=== PATIENT | male | born 1950 | race Caucasian/White ===

== ENCOUNTER 2020-12-11 18:47 | Emergency (ER) | payer OTHER, BC ==
--- OUTSIDE RECORDS SUMMARY | 2020-12-11 18:50 | XMS REPORT | Continuity of Care Document ---
:1950 Author Organization [facility] t Address [address] [place] [address] Care Team Providers Name Role Phone Favian LEONARD, R.A. Primary Care Physician Unavailable Doctor Unassigned, Name Attending Clinician Unavailable Marylou Giraldo MD Attending Clinician Danae LEONARD Attending Clinician Pob, Lab Main Attending Clinician Unavailable Problems This patient has no known problems. Allergies, Adverse Reactions, Alerts This patient has no known allergies or adverse reactions. Family History Family Member Diagnosis Comments Start Date Stop Date Source Natural brother Coronary artery MD Marylou govea disease Natural brother Prostate cancer MD Marylou govea Natural father Heart attack MD Sosa son Maternal grandmother Liver cancer MD Alvarado Natural mother Stomach cancer Natural mother Stroke MD Tiago simmons Paternal grandmother Diabetes MD Marylou govea Social History Social Habit Start Date Stop Date Quantity Comments Source History of tobacco Current smoker MD Alvarado use Sex Assigned At MD Cornelius on Cigarettes smoked 2016-12-11 2016-12-11 MD Elijah shields current (pack per 00:00:00 00:00:00 day) - Reported Cigarette pack-years 2016-12-11 2016-12-11 MD Marylou govea 00:00:00 00:00:00 Tobacco use and 2016-12-11 2016-12-11 Never used MD Cornelius on exposure 00:00:00 00:00:00 Alcohol intake 2016-12-11 2016-12-11 Current drinker MD Venus mcbride 00:00:00 00:00:00 of alcohol (finding) Alcohol Comment 2016-12-05 2016-12-05 not drinking MD Elijah shields 00:00:00 00:00:00 anymore Smoking Status Start Date Stop Date Source Former smoker 2016-12-11 00:00:00 2016-12-11 00:00:00 Ian faustino Medications Ordered Filled Start Stop Current Ordering Indication Dosage Frequency Signature Comments Components Source Medication Medication Date Date Medication? Clinician (SIG) Name Name omega-3 Yes 1000mg 1,000 mg MD fatty 2-14 twice Anderso acids-vitam 21:27: daily. n in E 1,000 04 mg cap MAGNESIUM Yes 400mg Take 400 MD ORAL 2-14 mg by Anderso 21:27: mouth n 04 daily. trolamine Yes Apply MD salicylate 2-14 topically Elijah rso (ASPERCREME 21:27: to n ) 10 % 04 affected cream area(s) daily. UNABLE TO Yes Med Name: FIND 2-14 torpicin Anderso 21:27: topical n 04 cream for joint pain-appli es daily levothyroxi Yes hypothyroid 50ug Take 50 MD ne 2-14 ism mcg by Anderso (SYNTHROID, 21:27: mouth n LEVOTHROID) 04 daily. 50 mcg tablet lisinopril Yes hypertensio 20mg Take 20 mg MD (PRINIVIL,Z 2-14 n by mouth Elijah rso ESTRIL) 20 21:27: twice n mg tablet 04 daily. diazePAM Yes Fear of 10mg Take 1 MD (VALIUM) 10 2-14 other tablet (10 A nderso mg tablet 00:00: medical mg) by n 00 care mouth once as needed for anxiety for up to 1 dose. metFORMIN 2016-10 Yes MD (GLUCOPHAGE 2-12 Anderso ) 500 mg 00:00: n tablet 00 bisoprolol- Yes MD hydrochloro 1-20 Anderso thiazide 00:00: n (ZIAC) 2.5 00 mg-6.25 mg per tablet MILK Yes 1000mg 1,000 mg MD THISTLE, 8-21 daily. Anderso BULK, MISC 00:00: n 00 pravastatin Yes 40mg 40 mg MD (PRAVACHOL) 1-02 twice Anderso 40 mg 00:00: daily. n tablet 00 Procedures This patient has no known procedures. Plan of Care Planned Activity Planned Date Details Comments Source Future Appointment 2021-12-13 00:00:00 Osiel Blackwell MD, [address], [place] [address] Encounters Start End Encounter Admission Attending Care Care Encounter Source Date/Time Date/Time Type Type Clinicians Facility Department ID 2020-05-03 2020-05-03 Orders Doctor JULIO 1.2.840.114 [id number] 00:00:00 00:00:00 Only Unassigned, AYAKA [id number] [facility] [id number] 2020-01-08 2020-01-08 Patient Giraldo, [facility] 1.2.840.114 [id number] 00:00:00 00:00:00 Secure Msg Annika [facility] [id number] [place] [id number] Professio [phone] [place] [address] Office [address] One 2020-01-04 2020-01-04 Patient Giraldo, [facility] [id number] 00:00:00 00:00:00 Secure Msg Annika [facility] [id number] [place] [id number] Professio [phone] [place] [address] Office [facility] One 2019-12-29 2019-12-29 [facility] 1.2.840.114 [id number] 00:00:00 00:00:00 Annika Marylou [place] [id number] [place] [id number] Professio [phone] [address] 2019-12-03 2019-12-03 Refill Giraldo, [facility] 1.2.840.114 [id number] 00:00:00 00:00:00 Annika A [place] [id number] [place] [id number] Professio [phone] [address] 2019-11-26 2019-11-26 [facility] GENEVA Fink 1.2.840.114 [id number] 11:30:00 23:59:00 Encounter Liborio Gibbons [id number] [facility] [id number] 2019-11-26 2019-11-26 Pediatric Nephrologist Mohsen Orozco [facility] 1.2.840.114 [id number] 12:45:08 13:00:08 Visit Lab Main [place] [id number] [place] [id number] Professio [phone] count includes the [facility] 353 [facility] 2019-11-02 2019-11-02 Orders Doctor JULIO 1.2.840.114 [id number] 00:00:00 00:00:00 Only Unassigned, AYAKA [id number] [facility] [id number] 2019-10-28 2019-10-28 Patient Giraldo [facility] 1.2.840.114 [id number] 00:00:00 00:00:00 Secure Msg Annika A [place] [id number] [place] [id number] Professio [phone] count includes the [facility] 044 [facility] 2019-10-28 2019-10-28 [facility] 1.2.840.114 [id number] 00:00:00 00:00:00 Annika A [place] [id number] [place] [id number] Professio [phone] count includes the [facility] 231 [facility] 2019-10-28 2019-10-28 [facility] 1.2.840.114 [id number] 00:00:00 00:00:00 Annika A [place] [id number] [place] [id number] Professio [phone] [address] 2019-04-30 2019-04-30 [facility] 1.2.840.114 [id number] 00:00:00 00:00:00 Annika A [place] [id number] [place] [id number] Professio [phone] [address] Results This patient has no known results.
[2020-12-11] MEDS ORDERED: TETANUS & DIPHTHERIA TOX,ADULT 0.5 ML VIAL ONE (20:35)
--- NOTE | 2020-12-11 20:53 | ER ---
Nurse's Notes [facility] Name: Dick Lynne Age: 70 yrs Sex: Male : 1950 Arrival Date: 12/11/2020 Time: 19:30 Bed 28 Private MD: Diagnosis: Puncture wound without foreign body of foot Presentation: 12/11 19:30 Chief complaint: Patient states: Stepped on a screw at 1730. Puncture wound on L foot, ca1 pulled out the screw, bleeding controlled. Coronavirus screen: Client denies travel out of the [place] in the last 14 days. At this time, the client does not indicate any symptoms associated with coronavirus-19. Ebola Screen: Patient negative for fever greater than or equal to 101.5 degrees Fahrenheit, and additional compatible Ebola Virus Disease symptoms Patient denies exposure to infectious person. Patient denies travel to an Ebola-affected area in the 21 days before illness onset. No symptoms or risks identified at this time. Initial Sepsis Screen: Does the patient meet any 2 criteria? No. Patient's initial sepsis screen is negative. Does the patient have a suspected source of infection? No. Patient's initial sepsis screen is negative. Risk Assessment: Do you want to hurt yourself or someone else? Patient reports no desire to harm self or others. Onset of symptoms was December 11, 2020. 19:30 Method Of Arrival: Ambulatory ca1 19:30 Acuity: SHAD 4 ca1 Historical: - Allergies: 19:35 No Known Allergies; ca1 - PMHx: 19:35 Hypertension; Diabetes - NIDDM; CAD; ca1 - PSHx: 19:35 None; ca1 - Immunization history:: Last tetanus immunization: < 5 years ago Pneumococcal vaccine is up to date, Flu vaccine is not up to date. - Social history:: Smoking status: Patient/guardian denies using tobacco. Screenin:36 Abuse screen: Denies threats or abuse. Denies injuries from another. Nutritional rr5 screening: No deficits noted. Tuberculosis screening: No symptoms or risk factors identified. Fall Risk None identified. Total Arias Fall Scale indicates No Risk (0-24 pts). Assessment: 20:10 General: Appears in no apparent distress. comfortable, Behavior is calm, cooperative, rr5 appropriate for age. Pain: Complains of pain in left foot. Neuro: Level of Consciousness is awake, alert, obeys commands, Oriented to person, place, time. Cardiovascular: Capillary refill < 3 seconds Patient's skin is warm and dry. Respiratory: Airway is patent Respiratory effort is even, unlabored, Respiratory pattern is regular, symmetrical. Derm: Wound noted left foot Wound is punctured. Musculoskeletal: Circulation, motion, and sensation intact. Capillary refill < 3 seconds. 21:16 Reassessment: Patient appears in no apparent distress at this time. Patient is alert, rr5 oriented x 3, equal unlabored respirations, skin warm/dry/pink. discharge instruction given and explained without complaints made. Vital Signs: 19:30 BP 160 / 83; Pulse 70; Resp 16 S; Temp 99.2(TE); Pulse Ox 100% on R/A; Weight 72.57 kg ca1 (R); Height 5 ft. 9 in. (175.26 cm) (R); Pain 2/10; 21:16 BP 145 / 70; Pulse 75; Resp 19; Pulse Ox 99% ; rr5 19:30 Body Mass Index 23.63 (72.57 kg, 175.26 cm) ca1 ED Course: 19:30 Patient arrived in ED. ca1 19:33 Triage completed. ca1 19:35 Arm band placed on right wrist. ca1 19:46 Elizabeth Tabares FNP-C [facility]. kb 19:46 Timmy Chester MD is Attending Physician. kb 20:12 Austin Gonzalez RN is Primary Nurse. rr5 20:35 X-ray(s) taken. rr5 20:36 Patient has correct armband on for positive identification. Bed in low position. Call rr5 light in reach. Pulse ox on. NIBP on. 21:15 Patient did not have IV access during this emergency room visit. Wound care: to rr5 puncture located on left foot was cleaned with Betadine, dressed with Neosporin, band aid, Patient tolerated well. 21:16 No provider procedures requiring assistance completed. rr5 Administered Medications: 20:32 Drug: Tetanus-Diphtheria Toxoid Adult 0.5 ml {Manager It Training: [employer]. Exp: rr5 03/12/2022. Lot #: [id number]. } Route: IM; Site: left deltoid; 21:17 Follow up: Response: No adverse reaction rr5 21:00 Drug: Ancef 1 grams Route: IM; Site: left gluteus; rr5 21:17 Follow up: Response: No adverse reaction rr5 Outcome: 20:52 Discharge ordered by MD. zavala 21:15 Discharged to home ambulatory. rr5 21:15 Condition: stable 21:15 Discharge instructions given to patient, Instructed on discharge instructions, follow up and referral plans. medication usage, Demonstrated understanding of instructions, follow-up care, medications, Prescriptions given X 1. 21:24 Patient left the ED. rr5 Signatures: Elizabeth Tabares, WILMAR-Altaf URBAN-Austin Palomino, RN RN rr5 Arabella Lua RN RN ca1
--- NOTE | 2020-12-11 20:53 | EDPHYS ---
Physician Documentation [facility] Name: Dick Lynne Age: 70 yrs Sex: Male : 1950 Arrival Date: 12/11/2020 Time: 19:30 Bed 28 Private MD: ED Physician Timmy Chester HPI: 12/11 21:38 This 70 yrs old Male presents to ER via Ambulatory with complaints of kb Puncture Wound. 21:38 The patient presents with pain, a puncture wound. The complaints affect the left foot. kb Context: The problem was sustained outdoors, resulted from the patient stepping on a nail, while wearing shoes, the patient can fully bear weight, the patient is able to ambulate. Onset: The symptoms/episode began/occurred just prior to arrival. Modifying factors: The symptoms are alleviated by nothing, the symptoms are aggravated by nothing. Associated signs and symptoms: The patient has no apparent associated signs or symptoms. Severity of symptoms: At their worst the symptoms were mild, in the emergency department the symptoms are unchanged. The patient has not experienced similar symptoms in the past. The patient has not recently seen a physician. Pt states he stepped on a screw. States he is concerned because he is diabetic and doesn't want to get a deep tissue infection. . Historical: - Allergies: 19:35 No Known Allergies; ca1 - PMHx: 19:35 Hypertension; Diabetes - NIDDM; CAD; ca1 - PSHx: 19:35 None; ca1 - Immunization history:: Last tetanus immunization: < 5 years ago Pneumococcal vaccine is up to date, Flu vaccine is not up to date. - Social history:: Smoking status: Patient/guardian denies using tobacco. ROS: 21:36 Constitutional: Negative for fever, chills, and weight loss, MS/Extremity: Negative for kb injury and deformity, Neuro: Negative for headache, weakness, numbness, tingling, and seizure. 21:36 Skin: Positive for puncture, of the ball of left foot. Exam: 21:37 Constitutional: This is a well developed, well nourished patient who is awake, alert, kb and in no acute distress. Head/Face: Normocephalic, atraumatic. MS/ Extremity: Pulses equal, no cyanosis. Neurovascular intact. Full, normal range of motion. Neuro: Awake and alert, GCS 15, oriented to person, place, time, and situation. Cranial nerves II-XII grossly intact. Moves all extremities. Sensory grossly intact. Cerebellar exam normal. Normal gait. 21:37 Respiratory: the patient does not display signs of respiratory distress, Respirations: normal. 21:37 Skin: injury, puncture(s), that are deep, of the ball of left foot. Vital Signs: 19:30 BP 160 / 83; Pulse 70; Resp 16 S; Temp 99.2(TE); Pulse Ox 100% on R/A; Weight 72.57 kg ca1 (R); Height 5 ft. 9 in. (175.26 cm) (R); Pain 2/10; 21:16 BP 145 / 70; Pulse 75; Resp 19; Pulse Ox 99% ; rr5 19:30 Body Mass Index 23.63 (72.57 kg, 175.26 cm) ca1 MDM: 20:13 Patient medically screened. kb 21:15 Data reviewed: vital signs, nurses notes. Data interpreted: Pulse oximetry: on room air kb is 100 %. Interpretation: normal. Counseling: I had a detailed discussion with the patient and/or guardian regarding: the historical points, exam findings, and any diagnostic results supporting the discharge/admit diagnosis, radiology results, the need for outpatient follow up, a family practitioner, to return to the emergency department if symptoms worsen or persist or if there are any questions or concerns that arise at home. 12/11 19:46 Order name: Foot Left 3 View XRAY kb 12/11 20:57 Order name: RAD; Complete Time: 21:10 EDMS Administered Medications: 20:32 Drug: Tetanus-Diphtheria Toxoid Adult 0.5 ml {Director Toxicology: [employer]. Exp: rr5 03/12/2022. Lot #: [id number]. } Route: IM; Site: left deltoid; 21:17 Follow up: Response: No adverse reaction rr5 21:00 Drug: Ancef 1 grams Route: IM; Site: left gluteus; rr5 21:17 Follow up: Response: No adverse reaction rr5 Disposition: 12/12 05:56 Co-signature as Attending Physician, Timmy Chester MD. [email or web address] Disposition: 12/11/20 20:52 Discharged to Home. Impression: Puncture wound without foreign body of foot. - Condition is Stable. - Discharge Instructions: Puncture Wound, [id number]. - Prescriptions for Keflex 500 mg Oral Capsule - take 1 capsule by ORAL route every 8 hours for 10 days; 30 capsule. - Medication Reconciliation Form, Thank You Letter, Antibiotic Education, Prescription Opioid Use form. - Follow up: Emergency Department; When: As needed; Reason: Worsening of condition. Follow up: Private Physician; When: 2 - 3 days; Reason: Recheck today's complaints, Continuance of care, Re-evaluation by your physician. Signatures: Dispatcher [employer] EDMS Elizabeth Tabares, SERVICES EXECUTIVE-C SERVICES EXECUTIVE-CkAustin Modi RN RN rr5 Acob, Arabella RN RN ca1 Timmy Chester MD MD [email or web address] Corrections: (The following items were deleted from the chart) 12/11 21:24 20:52 12/11/2020 20:52 Discharged to Home. Impression: Puncture wound without foreign rr5 body of foot. Condition is Stable. Forms are Medication Reconciliation Form, Thank You Letter, Antibiotic Education, Prescription Opioid Use. Follow up: Emergency Department; When: As needed; Reason: Worsening of condition. Follow up: Private Physician; When: 2 - 3 days; Reason: Recheck today's complaints, Continuance of care, Re-evaluation by your physician. kb
--- NOTE | 2020-12-11 20:56 | RAD REPORT ---
EXAM DESCRIPTION: RAD - Foot Left 3 View - 12/11/2020 8:38 pm CLINICAL HISTORY: PAIN COMPARISON: No comparisons FINDINGS: No fracture, dislocation or radiopaque foreign body. Mild vascular atherosclerotic change.
[2020-12-11] MEDS ORDERED: WATER FOR INJ,STERILE 10 ML ONE (21:13)
[2020-12-11] MEDS ORDERED: CEFAZOLIN SODIUM 1 GM/VIAL ONE (21:13)
[2020-12-11 22:48] VITALS: TEMP 99.2
[2020-12-11 22:50] VITALS: BP 145/70; O2SAT 99
== END 2020-12-11 21:24 | disposition home or self-care (01) ==
LOC: ER 18:47
DX: S91.332A Puncture wound without foreign body, left foot, initial encounter (principal); W45.0XXA Nail entering through skin, initial encounter; Y93.01 Activity, walking, marching and hiking; Y92.89 Other specified places as the place of occurrence of the external cause; Z23 Encounter for immunization; I10 Essential (primary) hypertension
CPT/HCPCS: 73630; 90471; 90714; 96372; 99284; J0690

== ENCOUNTER 2024-02-04 14:19 | Emergency (ER) | payer OTHER, BC ==
--- OUTSIDE RECORDS SUMMARY | 2024-02-04 14:22 | XMS REPORT | Clinical Summary ---
Author Name Unknown Organization [facility] Address [address] [place] [address] Care Team Providers Care Acidity Tester Name Role Phone Ld Ballesteros R.A., MD Primary Care Provider Un available Oscar Lopez MD Unavailable Allergies No known active allergies Medications Medication Sig Dispensed Refills Start Date End Date Status bisoprolol-hydrochlo rothiazide (ZIAC) 2.5 mg-6.25 mg per tablet 0 10/26/2015 Active omega-3 fatty acids-vitamin E 1,000 mg cap 1,000 mg twice daily. 0 Active MILK THISTLE, BULK, MISC 1,000 mg daily. 0 05/27/2014 Active pravastatin (PRAVACHOL) 40 mg tablet 40 mg twice daily. 0 10/08/2011 Active MAGNESIUM ORAL Take 400 mg by mouth daily. 0 Active trolamine salicylate (ASPERCREME) 10 % cream Apply topically to affected area(s) daily. 0 Active UNABLE TO FIND Med Name: torpicin topical cream for joint pain-applies daily 0 Active levothyroxine (SYNTHROID, LEVOTHROID) 50 mcg tabletIndications:hy pothyroidism Take 50 mcg by mouth daily. 0 Active lisinopril (PRINIVIL,ZESTRIL) 20 mg tabletIndications:hy pertension Take 20 mg by mouth twice daily. 0 Active metFORMIN (GLUCOPHAGE) 500 mg tablet 0 09/17/2017 Active diazePAM (VALIUM) 10 mg tabletIndications:Fe ar of other medical care Take 1 tablet (10 mg) by mouth once as needed for anxiety for up to 1 dose. 1 tablet 0 11/20/2017 Active polyethylene glycol-electrolytes (NULYTELY) 420 g solutionIndications: Colonoscopy planned Use as directed by ordering provider. 4000 mL 0 12/06/2021 Active Active Problems Problem Noted Date Diagnosed Date Personal history of colonic polyp 12/24/2016 Overview: Added automatically from request for surgery [id number] Surgical History Surgery Date Site/Laterality Comments TONSILLECTOMY 10/07/1961 - 10/06/1962 BALLOON ANGIOPLASTY, ARTERY 10/07/1997 - 10/06/1998 TONSILLECTOMY WI COLONOSCOPY FLX DX W/COLLJ SPEC WHEN PFRMD 12/05/2016 N/A Procedure: DIAGNOSTIC FLEXIBLE COLONOSCOPY PROXIMAL TO SPLENIC FLEXURE; Surgeon: Osiel Blackwell MD; Location: MAIN ENDOSCOPY; Service: GASTROENTEROLOGY Medical History Medical History Date Comments 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, 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 H/O: hip fracture 01/04/1978 right hip fx; no surgery Closed fracture of base of s kull with brief loss of consciousness of less than one hour 01/04/1978 no surgery Hyperlipidemia 1992 Fatty liver 2013 Pancreatitis 1983 Arthritis 2014 hands and jaw H/O: gout 2001 Rosacea 2014 Fracture of rib 01/04/1978 Disorder of coronary artery 1995 Hypertension 1995 Diabetes mellitus Disorder of thyroid gland hypoth roidism Family History Medical History Relation Name Comments Coronary artery disease Brother 1 Kostas Prostate cancer Brother 1 Kostas Prostate cancer Brother 2 Davy Heart attack Father Liver cancer Maternal Grandmother Stomach cancer Mother Stroke Mother Diabetes Paternal Grandmother Relation Name Status Comments Brother 1 Kostas Alive Brother 2 Davy Alive Father Maternal Grandfather Maternal Grandmother Mother Paternal Grandfather Paternal Grandmother Social History Tobacco Use Types Packs/Day Years Used Date Smoking Tobacco: Former Cigarettes 0.5 12 Q uit: 1984 Smokeless Tobacco: Never Alcohol Use Standard Drinks/Week Comments Yes 14 (1 standard drink = 0.6 oz pu re alcohol) not drinking anymore Sex and Gender Information Value Date Recorded Sex Assigned at Not on file Gender Identity Not on file Sexual Orientation Not on file History Length Weight Head Circum Gestation Age D/C Weight APGARs Del jacey Method Feeding PSA: 04/05/2016 (3.4)Col: n/ a Obstetrics History Plan of Treatment Health Maintenance Due Date Last Done Comments COVID-19 Vaccine (#1) 1950 Influenza Vaccine 06/07/2023 Care Teams Acidity Tester Relationship Specialty Start Date End Date Ld Ballesteros R.A., MD PCP - General Gastroenterology, Hepatology and Nutrition 02/06/16 Oscar Lopez MD [address] [place] [address] PCP - External Referring Urology 05/02/16
[2024-02-04] MEDS ORDERED: FOLIC ACID 5 MG/ML VIAL ONE (14:38)
[2024-02-04] MEDS ORDERED: NA CHLORIDE 0.9% 1,000 ML ONE (14:38)
[2024-02-04 14:51] LABS: Absolute Lymphocytes (CBC) 1.1 K/uL (0.7-4.9); Absolute Monocytes 0.7 K/uL (0.1-1.3); Absolute Neutrophil 5.4 K/uL (1.8-8.0); Basophils % 0.4 % (0-1.3); Eosinophils % 0.4 % (0-4.4); Hematocrit 41.9 % (39.6-49.0); Hemoglobin 13.8 g/dL (13.6-17.9); Lymphocytes % 15.1 % (15.3-44.8); MCH 31.5 pg (27.0-35.0); MCHC 32.9 g/dL (32.0-36.0); MCV 95.9 fL (80-100); MPV 8.3 fL (7.6-11.3); Monocytes % 9.6 % (3.3-12.3); Neutrophils % 74.5 % (41.7-73.7); Platelets 211 thou/uL (152-406); RBC Red Blood Cell Count 4.37 M/uL (4.33-5.43); Red Cell Distribution Width 13.1 % (12.1-15.2)
[2024-02-04 14:54] LABS: PT Prothrombin Time 10.4 SECONDS (9.5-12.5); Protime INR 0.94
--- NOTE | 2024-02-04 15:04 | RAD REPORT ---
EXAM DESCRIPTION: RAD - Chest Single View - 02/04/2024 2:50 pm CLINICAL HISTORY: COUGH Chest pain. COMPARISON: Chest Pa And Lat (2 Views) dated 11/21/2023; CHEST PA AND LAT 2 VIEW dated 11/10/2010 FINDINGS: Portable technique limits examination quality. The lungs are grossly clear. The heart is normal in size. No displaced fractures. IMPRESSION: No acute intrathoracic process suspected.
--- NOTE | 2024-02-04 15:05 | RAD REPORT ---
EXAM DESCRIPTION: CT - Head Brain Wo Cont - 02/04/2024 2:52 pm CLINICAL HISTORY: DIZZINESS Headache, drowsiness, dizziness COMPARISON: No comparisons TECHNIQUE: All CT scans are performed using dose optimization technique as appropriate and may inclu de automated exposure control or mA/KV adjustment according to patient size. FINDINGS: No intracranial hemorrhage, hydrocephalus or extra-axial fluid collection.No areas of brai n edema or evidence of midline shift. The paranasal sinuses and mastoids are clear. The calvarium is intact. IMPRESSION: No acute intracranial abnormality.
[2024-02-04 15:10] LABS: Albumin 4.2 g/dL (3.4-5.0); Albumin/Globulin Ratio 1.4 (1.1-1.8); Anion Gap 9.7 mEq/L (5.0-15.0); Bilirubin Direct 0.3 mg/dL (0-0.2); Bilirubin Indirect, Calculated 0.9 mg/dL (0.2-0.8); Bilirubin Total 1.2 mg/dL (0.2-1.0); Globulin 3.1 g/dL (2.3-3.5); Magnesium 2.3 mg/dL (1.6-2.4); Potassium 3.7 mEq/L (3.5-5.1); Protein, Total 7.3 g/dL (6.4-8.2); Troponin High Sensitivity 5.6 pg/mL (<58.9)
--- NOTE | 2024-02-04 15:10 | RAD REPORT ---
EXAM DESCRIPTION: CT - Head angio - 02/04/2024 2:51 pm CLINICAL HISTORY: HEADACHE Headache, drowsiness, CVA symptomology COMPARISON: Head Brain Wo Cont dated 02/04/2024 TECHNIQUE: CT angiography of the head was performed with MIPs. All CT scans are performed using dose optimization technique as appropriate and may include automated exposure control or mA/KV adjustment according to patient size. FINDINGS: No evidence of large vessel occlusion. No evidence of aneurysm is detected. No flow-limiti ng stenosis or vascular malformation identified. Antegrade flow is seen in the vertebral arteries. The left vertebral artery is dominant. The visualized dural venous sinuses are patent. IMPRESSION: No significant flow abnormality is detected.
--- NOTE | 2024-02-04 15:11 | RAD REPORT ---
EXAM DESCRIPTION: CT - Neck Angio - 02/04/2024 2:52 pm CLINICAL HISTORY: dzzy Headache, drowsiness, CVA symptomology COMPARISON: No comparisons TECHNIQUE: CT angiography of the neck vessels was performed with MIPs. All CT scans are performed using dose optimization technique as appropriate and may include automated exposure control or mA/KV adjustment according to patient size. FINDINGS: A left aortic arch is identified with normal three vessel configuration of the great vesse ls. No significant flow abnormality is seen of the common carotid bilaterally. There is moderate hard plaquing is seen involving the proximal left internal carotid artery. This res ults in stenosis estimated at 95% based on NASCET criteria. Small amount of hard plaque is seen right carotid bulb. There is no significant right carotid stenosis seen. Left vertebral artery is dominant with forward flow noted. IMPRESSION: 95% stenosis of the left carotid bulb is noted based on NASCET criteria, caused by promi nent hard plaquing. NASCET criteria used. Mild 0-49% stenosis Moderate 50-69% stenosis Severe 70-99% stenosis
[2024-02-04] MEDS ORDERED: LORazepam 2 MG/ML VIAL ONE (15:22)
[2024-02-04] MEDS ORDERED: CLOPIDOGREL 75 MG TABLET ONE (15:22)
[2024-02-04] MEDS ORDERED: TENECTEPLASE 50 MG/10 ML VIAL IV ONE (15:28)
--- NOTE | 2024-02-04 15:48 | EDPHYS ---
Physician Documentation [facility] Name: Dick Lynne Age: 73 yrs Sex: Male : 1950 Arrival Date: 02/04/2024 Time: 14:19 Bed 6 Private MD: ED Physician Agustin Alvarado HPI: 02/03 15:41 This 73 yrs old Male presents to ER via Ambulatory with complaints of [facility] Dizziness, Foggy. 15:41 The patient presents with dizziness. Onset: The symptoms/episode began/occurred at [facility] 12:30. Context: occurred at home, occurred while the patient was working. Modifying factors: The symptoms are alleviated by nothing, the symptoms are aggravated by nothing, movement of head. Associated signs and symptoms: Pertinent positives: thought are foggy. Severity of symptoms: At their worst the symptoms were mild moderate in the emergency department the symptoms are unchanged. Patient's baseline: Neuro: alert and fully oriented. The patient has not experienced similar symptoms in the past. Historical: - Allergies: 14:30 Iodine; as6 - PMHx: 14:30 Diabetes - NIDDM; CAD; Hypertension; as6 - PSHx: 14:30 leg (Hypertension); as6 - Immunization history:: Adult Immunizations up to date. - Infectious Disease History:: Denies. - Social history:: Smoking status: Patient denies any tobacco usage or history of. - Family history:: not pertinent. ROS: 15:41 Constitutional: Negative for fever, chills, and weight loss, Eyes: Negative for injury, alphonse pain, redness, and discharge, ENT: Negative for injury, pain, and discharge, Neck: Negative for injury, pain, and swelling, Cardiovascular: Negative for chest pain, palpitations, and edema, Respiratory: Negative for shortness of breath, cough, wheezing, and pleuritic chest pain, Abdomen/GI: Negative for abdominal pain, nausea, vomiting, diarrhea, and constipation, Back: Negative for injury and pain, : Negative for injury, bleeding, discharge, and swelling, MS/Extremity: Negative for injury and deformity, Skin: Negative for injury, rash, and discoloration, Psych: Negative for depression, anxiety, suicide ideation, homicidal ideation, and hallucinations, Allergy/Immunology: Negative for hives, rash, and allergies, Endocrine: Negative for neck swelling, polydipsia, polyuria, polyphagia, and marked weight changes, Hematologic/Lymphatic: Negative for swollen nodes, abnormal bleeding, and unusual bruising, 15:41 Neuro: Positive for dizziness, thought not crisp, clear, Exam: 15:41 Constitutional: This is a well developed, well nourished patient who is awake, alert, alphonse and in no acute distress. Head/Face: Normocephalic, atraumatic. Eyes: Pupils equal round and reactive to light, extra-ocular motions intact. Lids and lashes normal. Conjunctiva and sclera are non-icteric and not injected. Cornea within normal limits. Periorbital areas with no swelling, redness, or edema. ENT: Nares patent. No nasal discharge, no septal abnormalities noted. Tympanic membranes are normal and external auditory canals are clear. Oropharynx with no redness, swelling, or masses, exudates, or evidence of obstruction, uvula midline. Mucous membranes moist. Neck: Trachea midline, no thyromegaly or masses palpated, and no cervical lymphadenopathy. Supple, full range of motion without nuchal rigidity, or vertebral point tenderness. No Meningismus. Chest/axilla: Normal chest wall appearance and motion. Nontender with no deformity. No lesions are appreciated. Cardiovascular: Regular rate and rhythm with a normal S1 and S2. No gallops, murmurs, or rubs. Normal PMI, no JVD. No pulse deficits. Respiratory: Lungs have equal breath sounds bilaterally, clear to auscultation and percussion. No rales, rhonchi or wheezes noted. No increased work of breathing, no retractions or nasal flaring. Abdomen/GI: Soft, non-tender, with normal bowel sounds. No distension or tympany. No guarding or rebound. No evidence of tenderness throughout. Back: No spinal tenderness. No costovertebral tenderness. Full range of motion. Male : Normal genitalia with no discharge or lesions. Skin: Warm, dry with normal turgor. Normal color with no rashes, no lesions, and no evidence of cellulitis. MS/ Extremity: Pulses equal, no cyanosis. Neurovascular intact. Full, normal range of motion. Psych: Awake, alert, with orientation to person, place and time. Behavior, mood, and affect are within normal limits. 15:41 ECG was reviewed by the Attending Physician. Vital Signs: 14:29 BP 147 / 69; Pulse 46; Resp 18 S; Temp 97.2(TE); Pulse Ox 100% on R/A; Weight 74.84 kg as6 (R); Height 5 ft. 7 in. (R); Pain 0/10; 15:00 BP 170 / 97; Pulse 57; Resp 16; Pulse Ox 98% ; me1 16:00 BP 171 / 89; Pulse 51; Resp 16; Pulse Ox 100% on R/A; me1 14:29 Body Mass Index 25.84 (74.84 kg, 170.18 cm) as6 14:29 Pain Scale: Adult as6 MDM: 14:23 Patient medically screened. alphonse 15:44 Differential diagnosis: cardiac arrhythmia, CVA, generalized weakness, near-syncope, alphonse TIA, vertigo. Data reviewed: vital signs, nurses notes, lab test result(s), EKG, radiologic studies, CT scan, MRI. Consideration of Admission/Observation Escalation of care including admission/observation considered. I considered the following discharge prescriptions or medication management in the emergency department Medications were administered in the Emergency Department. See MAR. Independent interpretation of the following test(s) in the Emergency Department EKG: See my EKG interpretation above. Test considered but Not performed: Ultrasound no carotid usg. Historians other than the Patient: Spouse/Significant Other: well informed. Care significantly affected by the following chronic conditions: Diabetes, Hypertension, cad. Counseling: I had a detailed discussion with the patient and/or guardian regarding the historical points, exam findings, and any diagnostic results supporting the discharge/admit diagnosis, lab results, radiology results, the need to transfer to another facility, for higher level of care, [facility] does not immediately have the required specialist. 02/03 14:28 Order name: Basic Metabolic Panel; Complete Time: 15:13 alphonse 02/03 14:28 Order name: CBC with Diff; Complete Time: 15: alphonse 02/03 14:28 Order name: LFT's; Complete Time: 15:13 alphonse 02/03 14:28 Order name: Magnesium; Complete Time: 15:13 02/03 14:28 Order name: NT PRO-BNP; Complete Time: 15:13 02/03 14:28 Order name: PT-INR; Complete Time: 15:09 02/03 14:28 Order name: Troponin HS; Complete Time: 15:13 [facility] 02/03 14:28 Order name: Urinalysis w/ reflexes 02/03 18:03 Order name: CREATININE WHOLE BLOOD EDWY 02/03 14:28 Order name: XRAY Chest (1 view); Complete Time: 15:09 [facility] 02/03 14:28 Order name: CT Head Angio; Complete Time: 15:13 [facility] 02/03 14:28 Order name: CT Neck Angio; Complete Time: 15:13 [facility] 02/03 14:28 Order name: CT Head Brain wo Cont; Complete Time: 15:09 [facility] 02/03 15:09 Order name: Brain Wo Cont MRI [facility] 02/03 14:28 Order name: EKG; Complete Time: 14:29 [facility] 02/03 14:28 Order name: Cardiac monitoring; Complete Time: 14:43 [facility] 02/03 14:28 Order name: EKG - Nurse/Tech; Complete Time: 14:43 [facility] 02/03 14:28 Order name: IV Saline Lock; Complete Time: 14:44 [facility] 02/03 14:28 Order name: Labs collected and sent; Complete Time: 14:45 [facility] 02/03 14:28 Order name: O2 Per Protocol; Complete Time: 14:43 [facility] 02/03 14:28 Order name: O2 Sat Monitoring; Complete Time: 14:43 [facility] EC:41 Rate is 47 beats/min. Rhythm is regular. QRS [place] is Normal. HI interval is normal. QRS alphonse interval is normal. QT interval is normal. No Q waves. T waves are Normal. No ST changes noted. Clinical impression: Sinus bradycardia. Interpreted by me. Reviewed by me. Administered Medications: 14:45 Drug: NS 0.9% IV 1000 ml IV at 1 bolus Per protocol; 1000 mL bolus Route: IV; Rate: 1 me1 bolus; Site: right antecubital; 16:35 Follow up: Response: No adverse reaction; IV Status: Completed infusion; IV Intake: me1 1000ml 14:45 Drug: foLIC Acid IVPB 1 mg IVPB once Route: IVPB; Site: right antecubital; me1 14:45 Follow up: Response: No adverse reaction; IV Status: Completed infusion me1 18:20 Follow up: Response: No adverse reaction; IV Status: Completed infusion me1 15:25 Drug: Clopidogrel PO 75 mg PO once Route: PO; me1 15:51 Follow up: Response: No adverse reaction me1 15:25 Drug: Ativan IVP 1 mg IVP once Route: IVP; Site: right antecubital; me1 15:51 Follow up: Response: No adverse reaction; Anxiety decreased me1 15:39 Drug: TNK FOR STROKE - Tenecteplase IV 0.25 mg/kg IV at per protocol once; MAX me1 DOSE 25 mg, IVP over 5 seconds {Co-Signature: ld1 (Fide Ortiz RN).} Route: IV; Rate: per protocol; Site: right antecubital; 16:35 Follow up: Response: No adverse reaction; IV Status: Completed infusion me1 17:18 Drug: Famotidine IVP 20 mg IVP once; dilute with 10 mL 0.9% NaCl; give over 2 minutes me1 Route: IVP; Site: right antecubital; 18:19 Follow up: Response: No adverse reaction me1 Disposition Summary: 02/04/24 15:48 Transfer Ordered Notes: Transfer Location: [facility] alphonse Reason: Higher level of care alphonse Condition: Fair alphonse Problem: new alphonse Symptoms: have improved alphonse Accepting Physician: to [facility](02/04/24 18:18) me1 Diagnosis - Dizziness and giddiness alphonse - Type 2 diabetes mellitus with hyperglycemia alphonse - Cerebral infarction, unspecified alphonse - Occlusion and stenosis of left carotid artery - 95 % alphonse Forms: - Medication Reconciliation Form alphonse - SBAR form alphonse Signatures: Dispatcher [employer] Agustin Sheffield MD MD cha Slawson, Ashby, RN RN as6 Randa Childs RN RN me1 Fide Ortiz RN ld1 Corrections: (The following items were deleted from the chart) 14: 14:29 BASIC METABOLIC PANEL+C.LAB.BRZ ordered. EDMS EDMS 14:29 14:29 CBC+H.LAB.BRZ ordered. EDMS EDMS 14:29 14:29 HEPATIC FUNCTION+C.LAB.BRZ ordered. EDMS EDMS 14:29 14:29 MAGNESIUM+C.LAB.BRZ ordered. EDMS EDMS 14:29 14:29 PROBNP+C.LAB.BRZ ordered. EDMS EDMS 14:29 14:29 PROTIME (+INR)+COAG.LAB.BRZ ordered. EDMS EDMS 14: Troponin High Sensitivity+C.LAB.BRZ ordered. EDMS EDMS 14: Urinalysis+U.LAB.BRZ ordered. EDMS EDMS 18:18 15:48 to [facility] alphonse me1
--- NOTE | 2024-02-04 15:48 | ER ---
Nurse's Notes [facility] Name: Dick Lynne Age: 73 yrs Sex: Male : 1950 Arrival Date: 02/04/2024 Time: 14:19 Bed 6 Private MD: Diagnosis: Dizziness and giddiness;Type 2 diabetes mellitus with hyperglycemia;Cerebral infarction, unspecified;Occlusion and stenosis of left carotid artery-95 % Presentation: 02/03 14:31 Chief complaint: Patient states: dizziness and "feeling foggy". Coronavirus screen: At as6 this time, the client does not indicate any symptoms associated with coronavirus-19. Ebola Screen: No symptoms or risks identified at this time. Initial Sepsis Screen: Does the patient meet any 2 criteria? No. Patient's initial sepsis screen is negative. Does the patient have a suspected source of infection? No. Patient's initial sepsis screen is negative. Risk Assessment: Do you want to hurt yourself or someone else? Patient reports no desire to harm self or others. Onset of symptoms was February 04, 2024. 14:31 Method Of Arrival: Ambulatory as6 14:31 Acuity: SHAD 2 as6 Historical: - Allergies: 14:30 Iodine; as6 - PMHx: 14:30 Diabetes - NIDDM; CAD; Hypertension; as6 - PSHx: 14:30 leg (Hypertension); as6 - Immunization history:: Adult Immunizations up to date. - Infectious Disease History:: Denies. - Social history:: Smoking status: Patient denies any tobacco usage or history of. - Family history:: not pertinent. Screenin:15 [facility] ED Fall Risk Assessment (Adult) History of falling in the last 3 months, me1 including since admission No falls in past 3 months (0 pts) Confusion or Disorientation No (0 pts) Intoxicated or Sedated No (0 pts) Impaired Gait No (0 pts) Mobility Assist Device Used No (0 pt) Altered Elimination No (0 pt) Score/Fall Risk Level 0 - 2 = Low Risk Maintained a safe environment, Provided non-skid footwear, Hourly rounding (assess needs \\T\\ fall precautionary measures) done. Abuse screen: Denies threats or abuse. Nutritional screening: No deficits noted. Tuberculosis screening: No symptoms or risk factors identified. Assessment: 15:15 General: Appears comfortable, well groomed, well developed, well nourished, Behavior is me1 calm, cooperative, appropriate for age, Reports dizziness and feeling "detached" since about noon today. Pain: Denies pain. Neuro: Level of Consciousness is awake, alert, obeys commands, Oriented to person, place, time, situation, Appropriate for age. Neuro: Reports dizziness, since about noon today. Cardiovascular: Capillary refill < 3 seconds Patient's skin is warm and dry. Respiratory: Airway is patent Respiratory effort is even, unlabored, Respiratory pattern is regular, symmetrical. GI: No signs and/or symptoms were reported involving the gastrointestinal system. : No signs and/or symptoms were reported regarding the genitourinary system. EENT: No signs and/or symptoms were reported regarding the EENT system. Derm: Skin is intact, Skin is pink, warm \\T\\ dry. Musculoskeletal: Reports feeling a little less coordinated when ambulating today. 18:19 General: Patient left with EMS at 17:55. A\\T\\Ox4, No distress noted.. me1 Vital Signs: 14:29 BP 147 / 69; Pulse 46; Resp 18 S; Temp 97.2(TE); Pulse Ox 100% on R/A; Weight 74.84 kg as6 (R); Height 5 ft. 7 in. (R); Pain 0/10; 15:00 BP 170 / 97; Pulse 57; Resp 16; Pulse Ox 98% ; me1 16:00 BP 171 / 89; Pulse 51; Resp 16; Pulse Ox 100% on R/A; me1 14:29 Body Mass Index 25.84 (74.84 kg, 170.18 cm) as6 14:29 Pain Scale: Adult as6 ED Course: 14:23 Patient arrived in ED. mg5 14:23 Agustin Alvarado MD is Attending Physician. alphonse 14:29 Arm band placed on left wrist. as6 14:32 Triage completed. as6 14:36 Randa Childs, SHAYAN is Primary Nurse. me1 14:44 Initial lab(s) drawn, by ED staff, sent to lab. Inserted saline lock: 22 gauge in right me1 antecubital area, using aseptic technique. 14:45 Basic Metabolic Panel Sent. me1 14:45 CBC with Diff Sent. me1 14:45 LFT's Sent. me1 14:45 Magnesium Sent. me1 14:45 NT PRO-BNP Sent. me1 14:45 PT-INR Sent. me1 14:45 Troponin HS Sent. me1 14:52 XRAY Chest (1 view) In Process Unspecified. EDMS 14:53 CT Head Angio In Process Unspecified. EDMS 14:53 CT Neck Angio In Process Unspecified. EDMS 14:54 CT Head Brain wo Cont In Process Unspecified. EDMS 15:15 Patient has correct armband on for positive identification. Bed in low position. Call me1 light in reach. Side rails up X2. Provided Education on: POC. Verbalized understanding. 15:15 No provider procedures requiring assistance completed. me1 16:32 Patient transferred, IV remains in place. me1 16:38 Brain Wo Cont MRI In Process Unspecified. EDMS 17:14 initiated transfer to [facility],pt accepted in transfer to [facility] er by dr marylu gonzalez admin approval given by melani breaux. 17:18 tried to contact ems for transfer, no one answered phone, [facility] ems will transport pt.marylu Administered Medications: 14:45 Drug: NS 0.9% IV 1000 ml IV at 1 bolus Per protocol; 1000 mL bolus Route: IV; Rate: 1 me1 bolus; Site: right antecubital; 16:35 Follow up: Response: No adverse reaction; IV Status: Completed infusion; IV Intake: me1 1000ml 14:45 Drug: foLIC Acid IVPB 1 mg IVPB once Route: IVPB; Site: right antecubital; me1 14:45 Follow up: Response: No adverse reaction; IV Status: Completed infusion me1 18:20 Follow up: Response: No adverse reaction; IV Status: Completed infusion me1 15:25 Drug: Clopidogrel PO 75 mg PO once Route: PO; me1 15:51 Follow up: Response: No adverse reaction me1 15:25 Drug: Ativan IVP 1 mg IVP once Route: IVP; Site: right antecubital; me1 15:51 Follow up: Response: No adverse reaction; Anxiety decreased me1 15:39 Drug: TNK FOR STROKE - Tenecteplase IV 0.25 mg/kg IV at per protocol once; MAX me1 DOSE 25 mg, IVP over 5 seconds {Co-Signature: ld1 (Ortiz, Fide RN).} Route: IV; Rate: per protocol; Site: right antecubital; 16:35 Follow up: Response: No adverse reaction; IV Status: Completed infusion me1 17:18 Drug: Famotidine IVP 20 mg IVP once; dilute with 10 mL 0.9% NaCl; give over 2 minutes me1 Route: IVP; Site: right antecubital; 18:19 Follow up: Response: No adverse reaction me1 Medication: 15:15 VIS not applicable for this client. me1 Intake: 16:35 IV: 1000ml; Total: 1000ml. me1 Outcome: 15:48 ER care complete, transfer ordered by [facility] 16:32 Transferred by [facility] to [facility], Transfer form completed. me1 Note: Report given to SHAYAN Cantor 16:32 Condition: stable 16:32 Instructed on the need for transfer, 18:18 Patient left the ED. me1 Signatures: Dispatcher [employer] Lian Looney Corey, MD MD cha Slawson, Ashby RN RN as6 Randa Childs RN RN me1 Kassi Ash mg5 Fide Ortiz RN ld1 Corrections: (The following items were deleted from the chart) 14:32 14:31 Acuity: SHAD 3 as6 as6
[2024-02-04] MEDS ORDERED: FAMOTIDINE 20 MG/2 ML VIAL IV ONE (16:19)
[2024-02-04 16:33] LABS: Specific Gravity 1.026 (1.005-1.030); Urine Bilirubin NEGATIVE (Negative); Urine Blood Negative (Negative); Urine Clarity Clear (Clear); Urine Color Light-Yellow (Yellow); Urine Glucose NEGATIVE (Negative); Urine Ketones NEGATIVE (Negative); Urine Microscopic Reflex YN NO UMIC; Urine Nitrite NEGATIVE (Negative); Urine Protein NEGATIVE (Negative); Urine Urobilinogen Normal (Normal); Urine pH 6.5 (5.0-7.0)
--- NOTE | 2024-02-04 16:45 | RAD REPORT ---
EXAM DESCRIPTION: MRI - Brain Wo Cont - 02/04/2024 4:36 pm CLINICAL HISTORY: DIZZINESS Headache, drowsiness, CVA symptomology COMPARISON: Head angio dated 02/04/2024; Neck Angio dated 02/04/2024; Head Brain Wo Cont dated 02/04/20 24 TECHNIQUE: Multi-sequence, multiplanar MR imaging of the brain was performed without contrast. FINDINGS: No intracranial hemorrhage, hydrocephalus or extra-axial fluid collections.Mild brain atro phy with minimal periventricular and deep white matter chronic microvascular ischemia. No edema or sh ift of midline structures. No findings to suspect brain mass. DWI is negative for acute CVA. Midline structures are normally formed. Mastoid air cells and paranasal sinuses are clear. IMPRESSION: Negative for acute CVA or other acute intracranial process.
[2024-02-04 18:23] VITALS: TEMP 97.2; O2SAT 100
[2024-02-04 18:55] VITALS: BP 171/89
--- NOTE | 2024-02-05 13:10 | EKG ---
Test Date: 2024-02-04 Test Time: 14:38:33 Theatrical Performer: MEASUREMENT RESULTS: Intervals: Rate: 47 RI: 136 QRSD: 98 QT: 434 QTc: 384 [place]: P: 70 RI: 136 QRS: 75 T: 47 INTERPRETIVE STATEMENTS: Sinus bradycardia Nonspecific ST abnormality Abnormal ECG Compared to ECG 11/21/2023 15:47:32 ST (T wave) deviation now present Electronically Signed On 02-05-24 13:06:10 CDT by Tobias Yuan
== END 2024-02-04 18:18 | disposition short-term general hospital (02) ==
LOC: ER 14:19
DX: I63.9 Cerebral infarction, unspecified (principal); I65.22 Occlusion and stenosis of left carotid artery; E11.65 Type 2 diabetes mellitus with hyperglycemia; I10 Essential (primary) hypertension; Z91.048 Other nonmedicinal substance allergy status
CPT/HCPCS: 93005; 85025; 80048; 36415; 83735; 85610; 82565; 80076; 81003; 84484; 83880; 70450; 70496; 70498; 71045; 70551; 96374; Q9967; J3101; J7030; 92977; 96361; 96365; 96375; 99285

== ENCOUNTER 2024-07-16 11:21 | Day surgery (SDC) | payer OTHER, BC ==
[2024-07-14 14:45] LABS: Absolute Eosinophils 0.1 K/uL (0-0.5); Absolute Lymphocytes (CBC) 1.2 K/uL (0.7-4.9); Absolute Monocytes 0.6 K/uL (0.1-1.3); Absolute Neutrophil 5.3 K/uL (1.8-8.0); Basophils % 0.5 % (0-1.3); Eosinophils % 1.7 % (0-4.4); Hematocrit 40.5 % (39.6-49.0); Hemoglobin 13.5 g/dL (13.6-17.9); Lymphocytes % 16.9 % (15.3-44.8); MCH 32.1 pg (27.0-35.0); MCHC 33.2 g/dL (32.0-36.0); MCV 96.6 fL (80-100); MPV 8.9 fL (7.6-11.3); Monocytes % 8.3 % (3.3-12.3); Neutrophils % 72.6 % (41.7-73.7); Nucleated Red Blood Cells % 0.1 % (0-0); Platelets 202 thou/uL (152-406); Red Cell Distribution Width 13.2 % (12.1-15.2)
[2024-07-14 14:49] LABS: PT Prothrombin Time 10.5 SECONDS (9.4-12.5); PTT, Activated Partial Thromb 28.6 SECONDS (24.3-36.9); Protime INR 0.94
[2024-07-14 14:55] LABS: Anion Gap 7.5 mEq/L (5.0-15.0); Potassium 3.5 mEq/L (3.5-5.1)
[2024-07-16] MEDS ORDERED: NA CHLORIDE 0.9% 500 ML ONE (11:24)
[2024-07-16] MEDS ORDERED: LIDOCAINE 1% 20 ML MDV ONE (14:36)
[2024-07-16] MEDS ORDERED: HEPARIN 10,000 UNIT/10 ML VIAL IV ONE (14:36)
[2024-07-16] MEDS ORDERED: HEPA 1000U/500MLS 2,000 UNIT/1,000 ML BAG IV ONE (14:36)
[2024-07-16] MEDS ORDERED: TICAGRELOR 90 MG TABLET PO ONE (14:37)
[2024-07-16] MEDS ORDERED: HEPARIN 5000 UNIT/ML 1 ML VIAL ONE (14:37)
[2024-07-16] MEDS ORDERED: VERAPAMIL HCL 10 MG/4 ML VIAL IV ONE (14:37)
[2024-07-16] MEDS ORDERED: FENTANYL CITR 100 MCG/2 ML ONE (14:42)
[2024-07-16] MEDS ORDERED: MIDAZOLAM HCL 2 MG/2 ML INJ ONE (14:42)
[2024-07-16 16:15] VITALS: TEMP 97.8
--- NOTE | 2024-07-16 16:59 | EKG ---
Test Date: 2024-07-14 Test Time: 14:23:47 School Operations Manager: RAJI MEASUREMENT RESULTS: Intervals: Rate: 49 TX: 134 QRSD: 94 QT: 418 QTc: 377 [place]: P: 77 TX: 134 QRS: 76 T: 76 INTERPRETIVE STATEMENTS: Marked sinus bradycardia ST abnormality, possible digitalis effect Abnormal ECG Compared to ECG 02/04/2024 14:38:33 No significant changes Electronically Signed On 07-16-24 16:51:59 CDT by Tobias Yuan
[2024-07-16 17:28] VITALS: BP 130/68; O2SAT 100
--- NOTE | 2024-07-16 23:24 | OP ---
Date of Procedure: 07/16/2024 Surgeon: MORGAN WOODS Procedures Performed: 1.Selective coronary angiogram. 2.Left heart catheterization. Indication: Unstable angina symptoms. Access: Right radial artery 6-Tanzanian, closed with TR band. Complications: None. Bleedin mL. Anesthesia: Total sedation time was 45 minutes. Description Of Procedure: After risks, benefits, and alternatives were explained, patient agreed to procedure and signed informed consent. The patient was brought into cardiac catheterization laborato , prepped and draped in sterile fashion. Then, I accessed right radial artery using pediatric micr opuncture kit, placed 6-Tanzanian Slender sheath and took 5-T[place]anian [place] 4.0 catheter into the aortic ro ot over a J-wire and across the aortic valve, measured the LVEDP. Pullback did not record any signif icant gradient. Then, I engaged the left main, took standard views and then the RCA and took standar d views and then removed the catheter and the sheath, placed TR band with good hemostasis. Findings: 1.Left Main: Large and normal. 2.LAD: Proximal to mid heavily calcified long stenosis 70% to 80% stenosis and the mid to distal, t here is focal 40% stenosis. Diagonal branches are with luminal irregularities. 3.Left circumflex: Proximal 60% and proximal to mid 40% stenosis. 4.RCA: It has proximal 40%, mid there is long heavily calcified 80% stenosis, and the PDA has proxi mal 50% stenosis. 5.LVEDP is normal at 8 mmHg. Conclusion: Severe two-vessel coronary artery disease. Recommendation: CABG versus PCI with atherectomy in [place]. We will discuss further at followup next week in the office. /SHALINIL Voice ID: [id number] Report ID: [id number]
== END 2024-07-16 17:15 | disposition home or self-care (01) ==
LOC: CCL 11:21
PROVIDERS: ATTEND Internal Medicine
DX: I25.110 Atherosclerotic heart disease of native coronary artery with unstable angina pectoris (principal); I10 Essential (primary) hypertension; E78.5 Hyperlipidemia, unspecified; Z79.899 Other long term (current) drug therapy
CPT/HCPCS: 93005; 85025; 80048; 36415; 85610; 82947; 85730; 93458; 76937; C1893; Q9966; J1644; J2001; J2250; J3010; J7040; 99152; 99153

== ENCOUNTER 2024-12-06 16:37 | Emergency (ER) | payer OTHER, BC ==
[2024-12-06] MEDS ORDERED: HYDROCODONE/APAP 7.5/325 MG TAB ONE (17:05)
[2024-12-06] MEDS ORDERED: KETOROLAC 30 MG/ML INJ ONE (17:06)
--- NOTE | 2024-12-06 17:13 | EDPHYS ---
Physician Documentation [facility] Name: Dick Lynne Age: 74 yrs Sex: Male : 1950 Arrival Date: 12/06/2024 Time: 16:37 Bed DX5 Private MD: Vinay HODGE ED Physician Rigoberto Dunne HPI: 12/06 17:08 This 74 yrs old Male presents to ER via Ambulatory with complaints of Jaw Pain. kb 17:08 Pt is a 74 year old male who presents for left jaw pain. States the pain is chronic, kb but worse today due to eating a lot of shrimp last night. States he chewed on the left side a lot and "over did it." States he had an MRI of jaw last year and it showed degenerative changes. Denies fever. . Historical: - Allergies: 16:55 Iodine; iw - PMHx: 16:55 Diabetes - NIDDM; CAD; Hypertension; iw - PSHx: 16:55 leg; iw ROS: 17:09 Constitutional: As per HPI kb Exam: 17:09 Constitutional: This is a well developed, well nourished patient who is awake, alert, kb and in no acute distress. ENT: Moist Mucous membranes Cardiovascular: Regular rate Respiratory: Respirations even and unlabored. No increased work of breathing. Talking in full sentences Skin: Warm, dry with normal turgor. Normal color. MS/ Extremity: Pulses equal, no cyanosis. Neurovascular intact. Full, normal range of motion. Neuro: Awake and alert, GCS 15, oriented to person, place, time, and situation. 17:09 Head/face: Noted is no obvious of injury or deformity except tenderness, that is moderate, of the left zygomatic area, Vital Signs: 16:54 BP 130 / 70; Pulse 61; Resp 16; Pulse Ox 97% on R/A; Pain 6/10; iw 17:52 BP 115 / 74; Pulse 58; Resp 17; Pulse Ox 97% ; Pain 3/10; jl7 16:54 Pain Scale: Adult iw 17:52 Pain Scale: Adult jl7 MDM: 16:49 Medical Screening Exam initiated kb 17:11 Differential diagnosis: chronic pain, strain, arthritis. Data reviewed: vital signs, kb nurses notes. Test considered but Not performed: CT: ct considered but pt has full rom of jaw, no injury/trauma, afebrile, no trismus. Historians other than the Patient: Spouse/Significant Other: spouse. Counseling: I had a detailed discussion with the patient and/or guardian regarding the historical points, exam findings, and any diagnostic results supporting the discharge/admit diagnosis, the need for outpatient follow up, a family practitioner, OMFS, to return to the emergency department if symptoms worsen or persist or if there are any questions or concerns that arise at home. Administered Medications: 17:20 Drug: Hydrocodone-Acetaminophen PO (7.5 mg-325 mg) 1 tabs PO once Route: PO; jl7 17:53 Follow up: Response: No adverse reaction; Pain is decreased; RASS: Alert and Calm (0) jl7 17:21 Drug: Ketorolac IM 30 mg IM once Route: IM; Site: left deltoid; jl7 17:53 Follow up: Response: No adverse reaction; Pain is decreased jl7 Disposition: 19:17 Co-signature as Attending Physician, Rigoberto Dunne MD I reviewed the patient's care rt provided by the Advanced Practice Provider and agree with the diagnosis and treatment plan. Disposition Summary: 12/06/24 17:12 Discharge Ordered Notes: Location: Home kb Condition: Stable kb Diagnosis - Jaw pain kb Followup: kb - With: Emergency Department - When: As needed - Reason: Worsening of condition Followup: kb - With: Private Physician - When: 2 - 3 days - Reason: Recheck today's complaints, Continuance of care, Re-evaluation by your physician Discharge Instructions: - Discharge Summary Sheet kb - Jaw Range of Motion Exercises kb Forms: - Medication Reconciliation Form kb - Antibiotic Education kb - Prescription Opioid Use kb - Patient Portal Instructions kb - Leadership Thank You Letter kb Prescriptions: - Diclofenac Sodium 75 mg Oral tablet, delayed release (enteric coated) - take 1 tablet ORAL route 2 times per day As needed; 30 tablet; Refills: 0, kb Product Selection Permitted Signatures: Elizabeth Tabares FNP-C FNP-Lizette Romero RN RN iw Leal, Jahala, RN RN jl7 Rigoberto Dunne MD MD rt
--- NOTE | 2024-12-06 17:13 | ER ---
Nurse's Notes [facility] Name: Dick Lynne Age: 74 yrs Sex: Male : 1950 Arrival Date: 12/06/2024 Time: 16:37 Bed DX5 Private MD: Vinay HODGE Diagnosis: Jaw pain Presentation: 12/06 16:54 Chief complaint: Patient states: left jaw pain for months, hx of degenerative mandible iw bone , pain got severe last night after eating shrimp. Coronavirus screen: At this time, the client does not indicate any symptoms associated with coronavirus-19. Ebola Screen: No symptoms or risks identified at this time. Initial Sepsis Screen: Does the patient meet any 2 criteria? No. Patient's initial sepsis screen is negative. Does the patient have a suspected source of infection?. Risk Assessment: Do you want to hurt yourself or someone else? Patient reports no desire to harm self or others. Onset of symptoms. 16:54 Method Of Arrival: Ambulatory iw 16:54 Acuity: SHAD 4 iw Historical: - Allergies: 16:55 Iodine; iw - PMHx: 16:55 Diabetes - NIDDM; CAD; Hypertension; iw - PSHx: 16:55 leg; iw Screenin:00 [facility] ED Fall Risk Assessment (Adult) History of falling in the last 3 months, jl7 including since admission No falls in past 3 months (0 pts) Confusion or Disorientation No (0 pts) Intoxicated or Sedated No (0 pts) Impaired Gait No (0 pts) Mobility Assist Device Used No (0 pt) Altered Elimination No (0 pt) Score/Fall Risk Level 0 - 2 = Low Risk Oriented to surroundings, Maintained a safe environment. 17:00 Abuse screen: Denies threats or abuse. Denies injuries from another. Nutritional jl7 screening: No deficits noted. Tuberculosis screening: No symptoms or risk factors identified. Assessment: 17:50 Reassessment: Patient appears in no apparent distress at this time. pain reduced to jl7 3/10 at this time. Patient states symptoms have improved. Vital Signs: 16:54 BP 130 / 70; Pulse 61; Resp 16; Pulse Ox 97% on R/A; Pain 6/10; iw 17:52 BP 115 / 74; Pulse 58; Resp 17; Pulse Ox 97% ; Pain 3/10; jl7 16:54 Pain Scale: Adult iw 17:52 Pain Scale: Adult jl7 ED Course: 16:39 Patient arrived in ED. am2 16:40 Vinay HODGE is Private Physician. am2 16:49 Elizabeth Tabares FNP-C is [facility]. kb 16:49 Rigoberto Dunne MD is Attending Physician. kb 16:55 Triage completed. iw 17:00 Bed in low position. Call light in reach. Side rails up X 1. jl7 17:57 Provided Education on: discharge. jl7 17:57 No provider procedures requiring assistance completed. Patient did not have IV access jl7 during this emergency room visit. Administered Medications: 17:20 Drug: Hydrocodone-Acetaminophen PO (7.5 mg-325 mg) 1 tabs PO once Route: PO; jl7 17:53 Follow up: Response: No adverse reaction; Pain is decreased; RASS: Alert and Calm (0) jl7 17:21 Drug: Ketorolac IM 30 mg IM once Route: IM; Site: left deltoid; jl7 17:53 Follow up: Response: No adverse reaction; Pain is decreased jl7 Medication: 17:52 VIS not applicable for this client. jl7 Outcome: 17:12 Discharge ordered by . kb 17:57 Discharged to home ambulatory, jl7 17:57 Condition: stable 17:57 Discharge instructions given to patient, Instructed on discharge instructions, follow up and referral plans. medication usage, Demonstrated understanding of instructions, follow-up care, medications, Prescriptions given X 1, 17:59 Patient left the ED. jl7 Signatures: Elizabeth Tabares FNP-C [employer]-Lizette Romero RN RN Peace Mcneil RN RN jl7 [place] am2
[2024-12-06 18:13] VITALS: O2SAT 97
[2024-12-06 18:15] VITALS: BP 115/74
== END 2024-12-06 17:59 | disposition home or self-care (01) ==
LOC: ER 16:37
DX: R68.84 Jaw pain (principal)
CPT/HCPCS: 96372; 99284